=== PATIENT | male | born 1975 | race Caucasian/White ===

== ENCOUNTER 2018-10-24 07:53 | Emergency (ER) | payer OTHER ==
[2018-10-24 08:03] VITALS: BP 128/83; PULSE 82; TEMP 97.6; BMI 36.9
[2018-10-24] MEDS ORDERED: KETOROLAC TROMETHAMINE 60 MG/2 ML VIAL IM ONE (08:19)
[2018-10-24] MEDS ORDERED: KETOROLAC TROMETHAMINE 60 MG/2 ML VIAL ONE (08:21)
--- NOTE | 2018-10-24 08:25 | PDOC ---
History of Present Illness - General Chief Complaint: Pain Stated Complaint: neck pain Time Seen by Provider: 10/24/18 08:06 History Source: Patient Exam Limitations: No Limitations - History of Present Illness Initial Comments: 10/24/18 08:20 Relatively healthy 42-year-old male with history of well-controlled hypertension presents with left neck pain upon awakening this morning. Patient has been in usual state of normal health, around 6:30 AM got out of bed and noted left trapezius discomfort, worse with flexion and rotation, otherwise localized and nonradiating and not associated with any motor or sensory deficit. No associated headache/photophobia/fever/chills/sore throat, no history of known disc disease. The patient does do heavy lifting at work but has not done so for about 4 days, denies any other injuries. The patient took 2 Aleve around 6:30 and presents for evaluation after having minimal improvement. Past History - Past Medical History Allergies/Adverse Reactions: Allergies Allergy/AdvReac Type Severity Reaction Status Date / Time Penicillins Allergy Intermediate rash Verified 10/24/18 07:54 Home Medications: Ambulatory Orders Cholecalciferol (Vitamin D3) [Vitamin D3] 2,000 unit PO DAILY capsule 12/01/12 Cyclobenzaprine HCl 10 mg PO BID PRN #7 tablet MDD 2 tabs 10/24/18 COPD: No Disorders: Yes (renal stone) HTN: Yes Kidney Stones: Yes - Suicide/Smoking/Psychosocial Hx Smoking History: Never smoked Have you smoked in the past 12 months: No Hx Alcohol Use: Yes (occasional) Drug/Substance Use Hx: No Substance Use Type: None Review of Systems - Review of Systems Constitutional: No: Chills, Fever, Night Sweats HEENTM: No: Throat Pain, Throat Swelling, Difficulty Swallowing Respiratory: No: Shortness of Breath Cardiac (ROS): No: Chest Pain, Lightheadedness, Syncope Neurological: No: Headache, Paresthesia, Weakness *Physical Exam - Vital Signs Last Vital Signs Temp Pulse Resp BP Pulse Ox 97.6 F 82 18 128/83 98 10/24/18 07:53 10/24/18 07:53 10/24/18 07:53 10/24/18 07:53 10/24/18 07:53 - Physical Exam Comments: 10/24/18 08:22 Vital signs normal GENERAL: The patient is awake, alert, and fully oriented, in no acute distress. HEAD: Normal with no signs of trauma. EYES: PERRL, EOMI. ENT: oropharynx clear without exudates or swelling. Moist mucous membranes. NECK: Overall normal range of motion, slightly limited leftward rotation secondary to pain. No trapezial swelling or ecchymosis or erythema, slight reproducible discomfort. Supple without lymphadenopathy, bruits, or masses. LUNGS: Breath sounds equal, clear to auscultation bilaterally. No wheeze/ crackles. EXTREMITIES: Normal range of motion with full strength in four extremities. 2+ distal pulses NEUROLOGICAL: Cranial nerves II through XII grossly intact. Normal speech, normal gait. PSYCH: Normal mood, normal affect. SKIN: Warm, Dry, no rashes or lesions noted. Moderate Sedation - Procedure Monitoring Vital Signs: Procedure Monitoring Vital Signs Temperature 97.6 F 10/24/18 07:53 Pulse Rate 82 10/24/18 07:53 Respiratory Rate 18 10/24/18 07:53 Blood Pressure 128/83 10/24/18 07:53 O2 Sat by Pulse Oximetry (%) 98 10/24/18 07:53 Medical Decision Making - Medical Decision Making 10/24/18 08:25 42-year-old male presents with atraumatic left trapezial strain, neurologically intact without evidence of infectious or vascular process. Patient reassured, to new course of NSAIDs, normal activity, muscle relaxants as needed Muscle manipulation performed in ED by DO yovani Latif with significant relief , remains neurovascularly intact Agrees with discharge plan, understands return criteria *DC/Admit/Observation/Transfer Diagnosis at time of Disposition: Trapezius muscle strain Qualifiers: Encounter type: initial encounter Laterality: left Qualified Code(s): S46.812A - Strain of other muscles, fascia and tendons at shoulder and upper arm level, left arm, initial encounter - Discharge Dispostion Disposition: HOME Condition at time of disposition: Improved - Prescriptions Prescriptions: Cyclobenzaprine HCl 10 mg PO BID PRN #7 tablet MDD 2 tabs PRN Reason: Muscle Spasms - Referrals Referrals: Charles Fine MD [Staff Physician] - - Patient Instructions Printed Discharge Instructions: DI for Cervical Muscle Strain Additional Instructions: Activity as tolerated, avoiding bedrest or heavy lifting. Stay hydrated. Continue Aleve two tabs twice daily (preferably with food) for three days, then as needed. Flexeril as prescribed as needed as muscle relaxant - this medication can make you light headed, so take proper precautions. Continue your medications as previously prescribed by your physician. You should follow up with your primary doctor or a market development specialist regarding today's emergency department visit if symptoms persist. Return to the emergency department for any new or concerning symptoms, particularly worsening or shooting pain, arm numbness/weakness, fever/headache, difficulty swallowing. - Post Discharge Activity
== END 2018-10-24 08:37 | disposition home or self-care (01) ==
LOC: FER 07:53
PROC: 3E0233Z Introduction of Anti-inflammatory into Muscle, Percutaneous Approach (ICD-10-PCS; principal; 2018-10-24)
DX: S46.812A Strain of other muscles, fascia and tendons at shoulder and upper arm level, left arm, initial encounter (principal); X58.XXXA Exposure to other specified factors, initial encounter; Y93.89 Activity, other specified; Y92.89 Other specified places as the place of occurrence of the external cause; I10 Essential (primary) hypertension
CPT/HCPCS: 99282-25

== ENCOUNTER 2019-12-12 01:09 | Emergency (ER) | payer OTHER ==
[2019-12-12 01:16] VITALS: BP 142/97; PULSE 89; TEMP 98.6; BMI 33.2
--- NOTE | 2019-12-12 01:27 | PDOC ---
History of Present Illness - General Chief Complaint: Hematuria Stated Complaint: BLOOD IN URINE, PAIN IN TESTICLES Time Seen by Provider: 12/12/19 01:18 History Source: Patient Exam Limitations: No Limitations - History of Present Illness Initial Comments: 12/12/19 01:22 This is a 44-year-old male who comes in complaining of hematuria. Patient is complaining also of frequency. And some discomfort with urination. Patient says it feels like he has to urinate and is only able to urinate a small amount. But more frequently. Patient denies any back pain or flank pain. Patient did have some fevers earlier in the day but otherwise this evening denies any fevers or chills nausea vomiting or diarrhea. Allergies: as per nursing notes Past Medical History: Hypertension and high cholesterol Social history: Lives with family. No smoking. No alcohol. No illicit drugs. Surgical history: None General: No fevers or chills, no weakness, no weight loss HEENT: No change in vision. No sore throat,. No ear pain CardioVascular: no chest discomfort. No shortness of breath Respiratory:No cough, or wheezing. Gastrointestinal: no nausea, vomiting, diarrhea or constipation, No rectal bleeding Genitourinary: + dysuria, + hematuria, + frequency Musculoskeletal: No joint or muscle pain or swelling Neurologic: No headache, vertigo, dizziness or loss of consciousness Psychiatric: nor depression Skin: No rashes or easy bruising Endocrine: no increased thirst or abnormal weight change Allergic: no skin or latex allergy All other systems reviewed and normal GENERAL: The patient is awake, alert, and fully oriented, in no acute distress. HEAD: Normal with no signs of trauma. EYES: Pupils equal, round and reactive to light, extraocular movements intact, sclera anicteric, conjunctiva clear. EXTREMITIES:atraumatic, Normal range of motion, no edema. BACK: There is no CVA or back or flank pain on palpation and percussion. NEUROLOGICAL: Normal speech, normal gait. PSYCH: Normal mood, normal affect. SKIN: Warm, Dry, normal turgor, no rashes or lesions noted. 12/12/19 01:24 Assessment and plan: This is a 44-year-old male who comes in complaining of some urinary frequency and blood in his urine. UA obtained, and urine culture. Bladder scan done. 02/11/20 02:40 Assessment and plan: This is a 44-year-old male who comes in complaining of blood in his urine. Patient had a urinalysis that did show a urinary tract infection. Patient also had a bladder scan to make sure he was not in retention. Patient discharged we will follow-up with his primary care doctor. Patient started on Macrobid and Pyridium Past History - Past Medical History Allergies/Adverse Reactions: Allergies Allergy/AdvReac Type Severity Reaction Status Date / Time Penicillins Allergy Intermediate rash Verified 12/12/19 01:11 Home Medications: Ambulatory Orders Cholecalciferol (Vitamin D3) [Vitamin D3] 2,000 unit PO DAILY capsule 12/01/12 Phenazopyridine HCl [Pyridium] 100 mg PO TID #30 tablet 12/12/19 COPD: No Disorders: Yes (renal stone) HTN: Yes Kidney Stones: Yes - Psycho Social/Smoking Cessation Hx Smoking History: Never smoked Have you smoked in the past 12 months: No Information on smoking cessation initiated: No Hx Alcohol Use: No Drug/Substance Use Hx: No Substance Use Type: None *Physical Exam - Vital Signs Last Vital Signs Temp Pulse Resp BP Pulse Ox 98.6 F 89 16 142/97 97 12/12/19 01:14 12/12/19 01:14 12/12/19 01:14 12/12/19 01:14 12/12/19 01:14 Discharge - Discharge Information Problems reviewed: Yes Clinical Impression/Diagnosis: Hemorrhagic cystitis Condition: Stable Disposition: HOME - Admission No - Additional Discharge Information Prescriptions: Phenazopyridine HCl [Pyridium] 100 mg PO TID #30 tablet - Follow up/Referral Referrals: Raffi Aguirre MD [Primary Care Provider] - - Patient Discharge Instructions Additional Instructions: Take Pyridium 1 tablet 3 times a day as needed for blood in the urine and frequency symptoms. Take Macrobid 1 tablet twice a day for 5 days/ If symptoms have not resolved with an 48 hours follow-up with your primary care doctor or a urologist. Return to the emergency department immediately with ANY new, persistent or worsening symptoms. Continue any medications as previously prescribed by your physician. You should follow up with your primary doctor as soon as possible regarding today's emergency department visit. . Please make sure your doctor reviews the results of your emergency evaluation. Thank you for coming to the Emergency Department today for your care. It was a pleasure to see you today. Please note that your evaluation is INCOMPLETE until you follow-up with your doctor. - Post Discharge Activity
[2019-12-12] MEDS ORDERED: PHENAZOPYRIDINE HCL 100 MG TABLET (FP) PO ONE ×2 (01:33→01:35)
[2019-12-12] MEDS ORDERED: PHENAZOPYRIDINE HCL 100 MG TABLET (FP) ONE (01:33)
[2019-12-12 02:34] LABS: EPI CELLS 3.7 /HPF (0-5/HPF); HYALINE CASTS 15 /lpf (0-8); URINE APPEARANCE CLOUDY; URINE BACTERIA 12.2 /hpf (NEGATIVE); URINE BILIRUBIN NEGATIVE (NEGATIVE); URINE COLOR ORANGE; URINE GLUCOSE (UA) NEGATIVE (NEGATIVE); URINE KETONE NEGATIVE (NEGATIVE); URINE LEUK ESTERASE TRACE (NEGATIVE); URINE NITRITE NEGATIVE (NEGATIVE); URINE PROTEIN 2+ (NEGATIVE); URINE RBC 1527 /hpf (0-4); URINE WBC 10 /hpf (0-5)
[2019-12-12] MEDS ORDERED: NITROFURANTOIN MACROCRYSTAL 50 MG CAPSULE (FP) ONE (02:39)
[2019-12-12] MEDS ORDERED: NITROFURANTOIN MACROCRYSTAL 50 MG CAPSULE (FP) PO SCH (02:45)
== END 2019-12-12 02:45 | disposition home or self-care (01) ==
LOC: FER 01:09
DX: R33.9 Retention of urine, unspecified (principal); N30.81 Other cystitis with hematuria; Z88.0 Allergy status to penicillin; I10 Essential (primary) hypertension; N20.0 Calculus of kidney
CPT/HCPCS: 81003; 87086; 99284-25

== ENCOUNTER 2019-12-13 23:09 | Emergency (ER) | payer OTHER ==
[2019-12-13 23:16] VITALS: BP 140/84; PULSE 100; TEMP 98.1; BMI 28.0
--- NOTE | 2019-12-13 23:26 | PDOC ---
History of Present Illness - General Chief Complaint: Urinary Problem Stated Complaint: URINARY SYMPTOMS Time Seen by Provider: 12/13/19 23:13 - History of Present Illness Initial Comments: This 44-year-old man with a history of HTN and renal colic returns to the ER with persistent dysuria. Patient was seen here 48 hours ago with suprapubic discomfort and dysuria. At that time, UA revealed RBCs, WBCs and bacteria. Urine culture was sent and patient was started empirically on Macrodantin and Pyridium. Patient states that he felt better for approximately 24 hours; throughout the day today he had worsening suprapubic pain with urination. He denies suprapubic, flank or CVA pain when he is not urinating. There is no gross hematuria noted. He denies fever/chills, nausea/vomiting. Patient has had several previous episodes of renal colic with spontaneous passage of kidney stones in all cases. Most recent episode was several months ago (not seen here). He states his current pain is not similar to that which he has experienced during passage of kidney stones. Medication as noted below Allergy: Penicillin Non-smoker No daily alcohol or other recreational drug use Past History - Past Medical History Allergies/Adverse Reactions: Allergies Allergy/AdvReac Type Severity Reaction Status Date / Time Penicillins Allergy Intermediate rash Verified 12/12/19 01:11 Home Medications: Ambulatory Orders Cholecalciferol (Vitamin D3) [Vitamin D3] 2,000 unit PO DAILY capsule 12/01/12 Nitrofurantoin Macrocrystal [Macrodantin] 100 mg PO BID #10 capsule 12/12/19 Phenazopyridine HCl [Pyridium] 100 mg PO TID #30 tablet 12/12/19 Ciprofloxacin HCl [Cipro] 500 mg PO BID #14 tablet 12/14/19 COPD: No Disorders: Yes (renal stone) HTN: Yes Kidney Stones: Yes - Psycho Social/Smoking Cessation Hx Smoking History: Never smoked Have you smoked in the past 12 months: No Hx Alcohol Use: No Drug/Substance Use Hx: No Substance Use Type: None Review of Systems - Review of Systems Able to Perform ROS?: Yes Comments:: 12 point review of systems is negative except for what is noted in the history of present illness *Physical Exam - Physical Exam GENERAL: Adult male, alert and oriented x3, no acute distress HEAD: Normal with no signs of trauma. EYES: PERRLA, EOMI, sclera anicteric, conjunctiva clear. ENT: Ears normal, nares patent, oropharynx clear without exudates. moist mucous membranes. NECK: Normal range of motion, supple without lymphadenopathy, JVD, or masses. LUNGS: Breath sounds equal, clear to auscultation bilaterally. No wheezes, and no crackles. HEART:Regular rate and rhythm, normal S1 and S2 without murmur, rub or gallop. ABDOMEN:.normal bowel sounds. Mild suprapubic tenderness; no CVA or flank tenderness; no masses, rebound tenderness or guarding EXTREMITIES: Normal range of motion, no edema. No clubbing or cyanosis. No erythema, or tenderness. NEUROLOGICAL: Cranial nerves II through XII grossly intact. Normal speech. No focal neurological deficits. SKIN: Warm, Dry, normal turgor, no rashes or lesions noted. ED Progress Note - Progress Note Progress Note: Urinalysis performed: Dip positive for nitrite/3+ blood; microscopic 2040 RBC, 02 WBC, few bacteria Urine culture and sensitivity that was sent on 12/12: Negative Because the patient has symptoms consistent with UTI (although urine culture and sensitivity is negative), microscopic hematuria with some WBC/few bacteria and a history of renal stones, renal stone protocol CT performed. Preliminary interpretation by Imaging review consultant: Mild left hydronephrosis secondary to a 6 mm distal left UVJ stone. Additional small left renal stone noted. No other abnormality seen. Because the patient has 6 mm UVJ stone and symptoms consistent with UTI, there is possibility of complicated UTI/obstruction. Patient does not have a urologist. Dr. Robles is [employer] [facility] for urology and was contacted. Case discussed with him: Agrees with continuing antibiotic treatment with ciprofloxacin 500 mg orally. He can see the patient tomorrow. Results discussed with the patient. First dose of Cipro 500 mg p.o. given. He should continue drinking plenty of water. Although he did not require any medication for pain control here in the emergency room, if he develops any significant discomfort he can use acetaminophen/ibuprofen. If he has persistent pain he should return to the emergency room. Also, if he develops fever/chills he should return here. He should contact Dr. Robles's office in the morning and arrange to be an add -on patient during the day. Contact information for him provided to the patient Discharge - Discharge Information Problems reviewed: Yes Clinical Impression/Diagnosis: Kidney stone on left side, Dysuria Condition: Stable Disposition: HOME - Additional Discharge Information Prescriptions: Ciprofloxacin HCl [Cipro] 500 mg PO BID #14 tablet - Follow up/Referral Referrals: Raffi Aguirre MD [Primary Care Provider] - Nehemias Robles MD [Staff Physician] - Call tomorrow - Patient Discharge Instructions Patient Printed Discharge Instructions: Kidney Stones -- Adult Additional Instructions: continue to drink plenty of water Stop Macrodantin/Pyridium Begin Cipro 500 mg twice a day for 1 week (next dose tomorrow evening) Call urologist () office 9 a.m. and arrange follow-up tomorrow Tylenol/Motrin as needed for pain Return to ER if you have severe, persistent pain or fever/chills - Post Discharge Activity
[2019-12-14] MEDS ORDERED: CIPROFLOXACIN 500 MG TABLET (RESTRICTED TO ID) PO ONE (01:19)
[2019-12-14] MEDS ORDERED: CIPROFLOXACIN 250 MG TABLET (RESTRICTED TO ID) PO ONE (01:49)
== END 2019-12-14 01:51 | disposition home or self-care (01) ==
LOC: FER 23:09
DX: N20.0 Calculus of kidney (principal); R30.0 Dysuria; Z88.0 Allergy status to penicillin; I10 Essential (primary) hypertension
CPT/HCPCS: 74176-TC; 81003; 81015; 87086; 99284-25

== ENCOUNTER 2019-12-15 07:12 | Day surgery (SDC) | payer OTHER ==
--- NOTE | 2019-12-15 07:38 | PDOC ---
History of Present Illness - General Stated Complaint: PCP SENT History Source: Patient - History of Present Illness Initial Comments: 12/15/19 07:35 HPI 44 YOM with h/o kidney stones and HTN presenting with suprapubic AP x 1 week, a/ w hematuria (resolving), frequency and urgency and discomfort with urination, + subjective fevers (no temperature) and nausea.. Patient says it feels like he has to urinate and is only able to urinate a small amount with increased frequency, and after urinating the lower abdominal pressure improves. Denies fever, chills, chest pain, SOB, palpitation, dizziness, weakness, vomiting, diarrhea, flank pain, back pain, focal weakness/paresthesias, leg swelling/pain , rash. of note, pt had 2 prior ED visits for abdominal pain. on 12/11/19 - thought he had food poisoning at that time, he was told he had UTI, and on 12/13/19 he was told he had UVJ stone, CT scan at that time revealed Left UVJ obstructing stone measuring 6.5 x 3 x 4 mm with mild to moderate left hydronephrosis, nonobstructing stone in the left renal lower pole measuring 3.5 mm with exophytic cyst in the left middle kidney He started on ciprofloxacin 2 days ago after that visit and f/u with Dr Robles. he followed up with urologist yesterday, told he will require ESWL; went to [facility] for preop labs, but closed already at 4pm. urine culture has been NGTD. Allergies: pcn Past Medical History/PSH: HTN, kidney stones; no surgeries Social history: Lives with family. No tobacco, ETOH or drug use. Meds: as documented in EMR PMD: Dr Aguirre Urologist: Dr Robles. 12/15/19 07:37 12/15/19 07:43 12/15/19 07:58 Past History - Past Medical History Allergies/Adverse Reactions: Allergies Allergy/AdvReac Type Severity Reaction Status Date / Time Penicillins Allergy Intermediate rash Verified 12/12/19 01:11 Home Medications: Ambulatory Orders Cholecalciferol (Vitamin D3) [Vitamin D3] 2,000 unit PO DAILY capsule 12/01/12 Ciprofloxacin HCl [Cipro] 500 mg PO BID #14 tablet 12/14/19 COPD: No Disorders: Yes (renal stone) HTN: Yes Kidney Stones: Yes - Psycho Social/Smoking Cessation Hx Smoking History: Never smoked Have you smoked in the past 12 months: No Number of Cigarettes Smoked Daily: 0 Hx Alcohol Use: No Drug/Substance Use Hx: No Substance Use Type: None Review of Systems - Review of Systems Able to Perform ROS?: Yes Comments:: 12/15/19 07:53 Review of systems Constitutional: +subjective fevers No chills. No weakness HEENT: no headache or dizziness. CVS: no cp or syncope. Resp: no sob. No cough. Gastrointestinal: +abdominal pain, +nausea, No vomiting, No diarrhea. Genitourinary: +hematuria. +frequency, +urgency MUSCULOSKELETAL: No joint pain and swelling. No neck or back pain. SKIN: no redness or skin changes, no discharge, no rash. No wounds. Hematologic: no easy bruising/bleeding. NEUROLOGIC: No headache, dizziness, LOC or altered mental status. No weakness, numbness or tingling. Psych: no anxiety or depression Allergic/Immunologic: no allergies All other systems reviewed and negative, or as documented in HPI. *Physical Exam - Physical Exam 12/15/19 07:53 Physical exam General: Well appearing, awake and alert, NAD. HEENT: NCAT, PERRL, EOMI, clear conjunctiva, anicteric, moist mucus membranes, clear oropharynx, no oral lesions.. Neck: neck supple, FROM Resp: CTAB, normal and even respirations, no respiratory distress CVS: RRR, no murmurs, 2+ peripheral pulses throughout, no peripheral edema Abdomen: soft, nondistended. +suprapubic TTP, no rebound or guarding. : normal external genitalia. Back: nontender, normal inspection and ROM, no CVAT MSK: no edema, ADAMES x4, ROM intact. No clubbing or cyanosis. normal bulk and tone. Extremities: no calf tenderness Neuro: alert, oriented appropriately; no focal neurologic deficits Psych: Calm and cooperative Skin: warm and well perfused, cap refill <2 sec, normal color, no rash or skin discoloration. Heart Score/ECG Review #1 ECG reviewed & interpreted by me at: 07:45 General ECG Interpretation: Sinus Rhythm, Normal Rate, Normal Intervals 12/15/19 07:54 EKG normal sinus rhythm 74 bpm, no interval abnormalities, narrow QRS, ST and T wave segments and morphology normal. ED Treatment Course - LABORATORY CBC & Chemistry Diagram: 12/15/19 08:10 12/15/19 08:10 Medical Decision Making - Medical Decision Making 12/15/19 07:53 Vital Signs Temp Pulse Resp BP Pulse Ox 97.8 F 82 20 145/91 95 12/15/19 07:38 12/15/19 07:38 12/15/19 07:38 12/15/19 07:38 12/15/19 07:38 Vital signs reviewed within normal limits. Patient has been n.p.o. since last night. Patient has had 2 prior ED visits, today's presenting for preop management with his urologist Dr. Robles for obstructive UVJ stone on the left side, with austin mitten infection which patient is taking ciprofloxacin last dose was last night. He is planned for lithotripsy, basic labs coags type and screen EKG have been ordered. 12/15/19 08:09 d/w Dr Rocha, planned for ESWL at 10AM labs and lytes wnl, Cr normal UA with blood, no infectious finding but unreliable as pt already on ciprofloxacin and abx. Urine cx neg to date, pending repeat and after lithotripsy admit to OR/satellite for operative management with Dr Robles. 12/15/19 09:19 Discharge - Discharge Information Problems reviewed: Yes Clinical Impression/Diagnosis: Calculus of ureterovesical junction (UVJ) Condition: Stable - Admission Yes - Follow up/Referral Referrals: Raffi Aguirre MD [Primary Care Provider] - - Patient Discharge Instructions - Post Discharge Activity
[2019-12-15 07:45] VITALS: BMI 32.5
[2019-12-15 08:54] LABS: BASO % 0.7 % (0-2.0); EOS % 2.1 % (0-4.5); HEMATOCRIT 45.4 % (35.4-49); HEMOGLOBIN 15.7 GM/dL (11.7-16.9); LYMPH % 17.3 % (8-40); MCH 30.8 pg (25.7-33.7); MCHC 34.7 g/dl (32.0-35.9); MEAN CELL VOLUME 88.9 fl (80-96); MEAN PLT VOLUME 7.2 fl (7.5-11.1); MONO % 9.3 % (3.8-10.2); NEUT % 70.6 % (42.8-82.8); PLATELET COUNT 348 K/MM3 (134-434); RBC 5.11 M/mm3 (4.00-5.60); RDW 12.9 % (11.9-15.9); WHITE BLOOD COUNT 6.7 K/mm3 (4.0-10.0)
[2019-12-15 09:14] LABS: BILIRUBIN,TOTAL 0.6 mg/dL (0.2-1); BLOOD UREA NITROGEN 26.3 mg/dL (7-18); CALCIUM 9.4 mg/dL (8.5-10.1); INR 0.97 (0.83-1.09); POTASSIUM 4.3 mmol/L (3.5-5.1); PROTHROMBIN TIME (PATIENT) 11.5 SEC (9.7-13.0); TOT PROT 7.3 g/dl (6.4-8.2)
[2019-12-15 09:17] LABS: ACTIVATED PTT 33.9 SECONDS (25.2-36.5)
[2019-12-15 09:17] LABS: EPI CELLS 1.1 /HPF (0-5/HPF); HYALINE CASTS 4 /lpf (0-8); URINE APPEARANCE CLEAR; URINE BACTERIA 0.8 /hpf (NEGATIVE); URINE BILIRUBIN NEGATIVE (NEGATIVE); URINE COLOR DK YELLOW; URINE GLUCOSE (UA) NEGATIVE (NEGATIVE); URINE KETONE NEGATIVE (NEGATIVE); URINE LEUK ESTERASE NEGATIVE (NEGATIVE); URINE NITRITE NEGATIVE (NEGATIVE); URINE PROTEIN 2+ (NEGATIVE); URINE RBC 64 /hpf (0-4); URINE UROBILINOGEN 0.2 mg/dL (0.2-1.0); URINE WBC 2 /hpf (0-5)
[2019-12-15] MEDS ORDERED: MIDAZOLAM HCL 2 MG/2 ML SINGLE DOSE VIAL ONE (09:50)
[2019-12-15] MEDS ORDERED: LIDOCAINE HCL/PF 2% SDV 5ML VIAL ONE (09:50)
[2019-12-15] MEDS ORDERED: PROPOFOL 20 ML ONE (09:50)
--- NOTE | 2019-12-15 10:29 | HP ---
Admitting History and Physical - Admission History of Present Illness: 44 yo male with HTN, persistant pain from left distal ureteral stone, now to undego ureteroscopy/laser litho - Past Medical History Renal/: Yes: Renal Calculi - Smoking History Smoking history: Never smoked Have you smoked in the past 12 months: No Aproximately how many cigarettes per day: 0 - Alcohol/Substance Use Hx Alcohol Use: No Home Medications - Allergies Allergies/Adverse Reactions: Allergies Allergy/AdvReac Type Severity Reaction Status Date / Time Penicillins Allergy Intermediate rash Verified 12/12/19 01:11 - Home Medications Home Medications: Ambulatory Orders Cholecalciferol (Vitamin D3) [Vitamin D3] 2,000 unit PO DAILY capsule 12/01/12 Ciprofloxacin HCl [Cipro] 500 mg PO BID #14 tablet 12/14/19 Family Medical History Family History: Unable to Obtain Review of Systems - Review of Systems Constitutional: reports: No Symptoms Eyes: reports: No Symptoms HENT: reports: No Symptoms Neck: reports: No Symptoms Cardiovascular: reports: No Symptoms Respiratory: reports: No Symptoms Gastrointestinal: reports: No Symptoms Physical Examination Vital Signs: Vital Signs Temperature 97.8 F 12/15/19 07:38 Pulse Rate 82 12/15/19 07:38 Respiratory Rate 20 12/15/19 07:38 Blood Pressure 145/91 12/15/19 07:38 O2 Sat by Pulse Oximetry (%) 95 12/15/19 07:38 HENT: Yes: WNL Neck: Yes: WNL Cardiovascular: Yes: WNL Respiratory: Yes: WNL Gastrointestinal: Yes: WNL Renal/: Yes: CVA Tenderness - Left Labs: CBC, BMP 12/15/19 08:10 12/15/19 08:10 Imaging - Results Cat Scan: Report Reviewed Problem List - Problems (1) Calculus of ureterovesical junction (UVJ) Assessment/Plan: plan for ureteroscopy/laser litho Code(s): N20.1 - CALCULUS OF URETER
[2019-12-15] MEDS ORDERED: KETOROLAC TROMETHAMINE 30 MG/1 ML VIAL ONE (10:41)
[2019-12-15] MEDS ORDERED: DEXAMETHASONE SOD PHOSPHATE 4 MG/1 ML VIAL ONE (10:41)
[2019-12-15] MEDS ORDERED: oxyCODONE HCL 5 MG TABLET PO PRN (11:11)
--- NOTE | 2019-12-15 11:13 | OP ---
Operative Note - Note: Operative Date: 12/15/19 Pre-Operative Diagnosis: LDU stone Operation: cysto/left ureteroscopy/laser litho/stent Findings: LDU impacted Post-Operative Diagnosis: Same as Pre-op (plus LDU stricture) Anesthesia: General Operative Report Dictated: Yes
[2019-12-15] MEDS ORDERED: DEXTROSE 5%-0.45% SALINE 1,000 ML IV SCH (11:15)
--- NOTE | 2019-12-15 12:25 | EKG ---
Test Reason : Blood Pressure : / mmHG Vent. Rate : 074 BPM Atrial Rate : 074 BPM P-R Int : 118 ms QRS Dur : 082 ms QT Int : 378 ms P-R-T Axes : 043 055 041 degrees QTc Int : 419 ms POOR DATA QUALITY, INTERPRETATION MAY BE ADVERSELY AFFECTED NORMAL SINUS RHYTHM NORMAL ECG NO PREVIOUS ECGS AVAILABLE Confirmed by ANH CHAUDHRY MD ([id number]) on 12/15/2019 12:25:14 PM Referred By: Confirmed By:ANH CHAUDHRY MD
--- NOTE | 2019-12-15 12:29 | OP ---
DATE OF OPERATION: 12/15/2019 PREOPERATIVE DIAGNOSIS: Obstructing left distal ureteral stone. POSTOPERATIVE DIAGNOSIS: Impacted left distal ureteral stone. PROCEDURE: Cystoscopy, ureteroscopy, laser lithotripsy, stone basketing, and stent placement. SURGEON: Benedicto Perez MD INDICATION: Patient is a 44-year-old male who has had multiple ER visits for obstructing 5.5-mm left distal ureteral stone. He was taken to the OR today for ureteroscopy, laser lithotripsy. Risks, benefits, and alternatives were discussed, including risk of bleeding, infection, stricture formation, and potential need for additional procedures, potential injury to adjacent organs, and persistence of stone burden. DESCRIPTION OF PROCEDURE: After informed consent was obtained, patient taken to the OR, placed supine on the table with cardiac monitors administered. General anesthesia was established. He was prepped and draped in dorsal supine position. The rigid cystoscope was inserted in the urethra without difficulty. Anterior urethra was normal. Prostatic urethra was not occlusive. The bladder was visualized. No tumors, stones noted in the bladder. Attention was turned to the left ureteral orifice which was intubated with ureteral catheter. Contrast was injected for a retrograde pyelogram. There was hydroureteronephrosis down to the distal ureter where stone was seen. Guidewire was negotiated beyond the stone. Alongside the guidewire a semirigid ureteroscope was advanced into the distal ureter where a stone was seen just beyond the intramural ureter. The stone was completely impacted into the ureter. Using the 365-micron laser fiber, the stone was pulverized to fine dust and 1- to 2-mm fragments, and several of these fragments were removed with the stone basket. Repeat ureteroscopy revealed evidence of urethral stricture where the stone had been impacted; however, beyond this, the ureter appeared clear. There were no other residual stone fragments noted. Ureteroscope was then removed and a 7-Israeli 24-cm double pigtail stent was then advanced in monorail fashion. Fluoroscopy confirmed the stent to be in good position. Patient awoken from anesthesia and transferred to the recovery room in stable condition. There was no complications. Estimated blood loss was minimal. BENEDICTO PEREZ M.D. [id number]
[2019-12-15 14:25] VITALS: BP 107/78; PULSE 78; TEMP 98
== END 2019-12-15 14:15 | disposition home or self-care (01) ==
LOC: JOR 07:12 → JASU-SURG 08:07 → JASUSAT 08:07 → JASU-SURG 14:15
PROVIDERS: ATTEND Urology
PROC: 0TF78ZZ Fragmentation in Left Ureter, Via Natural or Artificial Opening Endoscopic (ICD-10-PCS; principal; 2019-12-15 10:30)
PROC: 0T778DZ Dilation of Left Ureter with Intraluminal Device, Via Natural or Artificial Opening Endoscopic (ICD-10-PCS; 2019-12-15 10:30)
DX: N20.1 Calculus of ureter (principal)
CPT/HCPCS: 36415; 76000-TC-FY; 80053; 81003; 85025; 85610; 85730; 86850; 86900; 86901; 87086; 93005; 93010; 94760; 99285-25

== ENCOUNTER 2019-12-31 20:43 | Emergency (ER) | payer OTHER ==
[2019-12-31] MEDS ORDERED: ONDANSETRON 4 MG/2 ML VIAL IVPB ONE (20:45)
[2019-12-31] MEDS ORDERED: SODIUM CHLORIDE 1,000 ML IV ONE (20:45)
[2019-12-31 20:50] VITALS: TEMP 99.2; BMI 33.2
[2019-12-31] MEDS ORDERED: ONDANSETRON 4 MG/2 ML VIAL ONE (20:56)
[2019-12-31 21:37] LABS: EPITHELIAL CELLS FEW /hpf
--- NOTE | 2019-12-31 21:46 | PDOC ---
Documentation entered by Alma Astorga SCRIBE, acting as scribe for Kim Desouza MD. Kim Desouza MD: This documentation has been prepared by the chichiibe, Alma Astorga SCRIBE, under my direction and personally reviewed by me in its entirety. I confirm that the documentation accurately reflects all work, treatment, procedures, and medical decision making performed by me. History of Present Illness - General Chief Complaint: Nausea/Vomiting Stated Complaint: NAUSEA, VOMITING Time Seen by Provider: 12/31/19 20:45 History Source: Patient Exam Limitations: No Limitations - History of Present Illness Initial Comments: 12/31/19 21:09 Patient is a 44 year old male with a significant PMH of HTN and kidney stones who presents with nausea and vomiting s/p lithotripsy. As per patient, he reports he got his stent taken out on and didn't eat for 12 hours and went to a restaurant afterwards and was unable to hold any food. He states he had several episodes of NBNB emesis with associated chills. He denies taking any medication for his symptoms. He denies any recent dysuria, frequency, urgency or hematuria. PMD: Dr Aguirre Urologist: Dr Robles. PAST MEDICAL HISTORY: HTN and Kidney stones. PAST SURGICAL HISTORY: no significant history FAMILY HISTORY: no pertinent history SOCIAL HISTORY: Pt lives with family and is employed. MEDICATIONS: reviewed ALLERGIES: As per nursing notes General: No fevers or chills, no weakness, no weight loss HEENT: No change in vision. No sore throat,. No ear pain CardioVascular: No chest pain or shortness of breath Respiratory:No cough, or wheezing. Gastrointestinal: +Nausea.+Vomiting.No diarrhea or constipation, No rectal bleeding Genitourinary: No dysuria, hematuria, or frequency Musculoskeletal: No joint or muscle pain or swelling Neurologic: No headache, vertigo, dizziness or loss of consciousness Psychiatric: nor depression Skin: No rashes or easy bruising Endocrine: no increased thirst or abnormal weight change Allergic: no skin or latex allergy All other systems reviewed and normal General: Well-nourished well-developed individual, no acute distress HEENT: Throat:+Dry mucous membranes. Tonsils normal, no erythema or exudate Neck: Supple, no meningeal signs, no lymphadenopathy Eyes::Pupils equal reactive and round, extraocular motion intact Chest: Nontender to palpation Cardiac: S1-S2 normal, regular rate and rhythm, no murmurs rubs or gallops Respiratory: Lungs clear to auscultation bilateral Abdomen: Soft, nondistended, normal bowel sounds, nontender to palpation diffusely Extremities: Warm, dry, no cyanosis, clubbing, or edema Skin: No rashes Neuro: Alert and oriented x3, nonfocal exam, grossly intact, normal gait Psych: Normal mood and affect Assessment and plan: This is a 44-year-old male who comes in complaining of nausea vomiting and no other symptoms. Patient had approximately 12 hours of multiple episodes of vomiting and is mild to moderately dehydrated here in the emergency department. Patient was given fluids and antiemetics. Patient able to tolerate p.o.'s and feels much better. Patient will follow-up with his primary care doctor given vomiting discharge instructions. Patient's repeat vitals are improved his heart rate came down from 124-103. Past History - Past Medical History Allergies/Adverse Reactions: Allergies Allergy/AdvReac Type Severity Reaction Status Date / Time Penicillins Allergy Intermediate rash Verified 12/31/19 20:44 Home Medications: Ambulatory Orders Ondansetron [Zofran *Odt*] 4 mg SL TID #12 od.tablet MDD 6 12/31/19 COPD: No Disorders: Yes (kidney stones, lithotripsy) HTN: Yes Kidney Stones: Yes - Immunization History Immunization Up to Date: Yes - Psycho Social/Smoking Cessation Hx Smoking History: Never smoked Have you smoked in the past 12 months: No Number of Cigarettes Smoked Daily: 0 Information on smoking cessation initiated: No Hx Alcohol Use: No Drug/Substance Use Hx: No Substance Use Type: None *Physical Exam - Vital Signs Last Vital Signs Temp Pulse Resp BP Pulse Ox 99.2 F 124 H 20 129/91 97 12/31/19 20:43 12/31/19 20:43 12/31/19 20:43 12/31/19 20:43 12/31/19 20:43 ED Treatment Course - ADDITIONAL ORDERS Additional order review: Laboratory Results 12/31/19 21:29 Urine Color Yellow Urine Appearance Clear Urine pH 5.0 Urine Protein Negative Urine Glucose (UA) Negative Urine Ketones Negative Urine Blood 3+ H Urine Nitrite Negative Urine Bilirubin Negative Urine Urobilinogen 0.2 Ur Leukocyte Esterase Negative Urine RBC 10-20 Urine WBC 0-2 Ur Transition Epith Cell Few Urine Bacteria Few - Medications Given in the ED: ED Medications Discontinued Medications Generic Name Dose Route Start Last Admin Trade Name Leyda PRN Reason Stop Dose Admin Ondansetron HCl 8 mg 12/31/19 20:45 12/31/19 21:00 Zofran Injection IVPB 12/31/19 20:46 8 mg ONCE ONE Administration Discharge - Discharge Information Problems reviewed: Yes Clinical Impression/Diagnosis: Nausea & vomiting Condition: Stable Disposition: HOME - Admission No - Additional Discharge Information Prescriptions: Ondansetron [Zofran *Odt*] 4 mg SL TID #12 od.tablet MDD 6 - Follow up/Referral Referrals: Raffi Aguirre MD [Primary Care Provider] - - Patient Discharge Instructions Additional Instructions: Clear liquids only for the next 6 hours.. If you develop further nausea or vomiting take Zofran 1 to 2 tablets as often as every 6-8 hours as needed I sent a prescription to your pharmacy After that if you have had no further vomiting you may have bananas, rice, applesauce, or toast. If no further vomiting for another 8 hours you may have regular food. If you vomit again then nothing to eat or drink for 2 hours. then start back with the clear liquids. Return to the emergency department immediately with ANY new, persistent or worsening symptoms. You MUST call and follow up with your doctor tomorrow if not better. Please make sure your doctor reviews the results of your emergency evaluation. - Post Discharge Activity
[2019-12-31 21:47] VITALS: BP 126/85; PULSE 102
== END 2019-12-31 21:52 | disposition home or self-care (01) ==
LOC: FER 20:43
PROC: 3E033GC Introduction of Other Therapeutic Substance into Peripheral Vein, Percutaneous Approach (ICD-10-PCS; principal; 2019-12-31)
DX: R11.2 Nausea with vomiting, unspecified (principal); Z88.0 Allergy status to penicillin; N20.0 Calculus of kidney; I10 Essential (primary) hypertension
CPT/HCPCS: 81003; 81015; 99284-25; J7030

== ENCOUNTER 2020-09-17 20:06 | Emergency (ER) | payer OTHER ==
[2020-09-17 20:35] VITALS: BP 118/75; PULSE 88; TEMP 99.7; BMI 32.5
== END 2020-09-17 20:35 | disposition home or self-care (01) ==
LOC: FER 20:06
DX: R19.7 Diarrhea, unspecified (principal)
CPT/HCPCS: 99282-25

== ENCOUNTER 2020-09-30 17:23 | Emergency (ER) | payer OTHER | END 2020-09-30 18:00 | disposition home or self-care (01) | LOC: JVIRT 17:23 | DX: Z03.818 Encounter for observation for suspected exposure to other biological agents ruled out (principal) | CPT/HCPCS: C9803; G2012-GT; U0003 ==

== ENCOUNTER 2021-06-25 08:31 | Emergency (ER) | payer OTHER ==
[2021-06-25] MEDS ORDERED: PANTOPRAZOLE SODIUM 40 MG in SODIUM CHLORIDE 100 ML IVPB ONE (08:54)
[2021-06-25 09:27] VITALS: TEMP 98; BMI 32.5
[2021-06-25] MEDS ORDERED: PANTOPRAZOLE SODIUM 40 MG VIAL ONE (09:39)
[2021-06-25 10:00] LABS: ALK PHOS 65 U/L (45-117); ANION GAP 8 MMOL/L (8-16); BILIRUBIN,TOTAL 0.7 mg/dl (0.2-1); CALCIUM 9.1 mg/dl (8.5-10); CHLORIDE 102 mmol/L (98-107); CO2 25 mmol/L (21-32); CREATININE 0.6 mg/dl (0.55-1.3); GLUCOSE,RANDOM 118 mg/dl (74-106); SGOT/AST 17 U/L (15-37); SGPT/ALT 23 U/L (13-61); SODIUM 135 mmol/L (136-145); TOT PROT 6.6 g/dl (6.4-8.2)
[2021-06-25 10:03] LABS: MEAN PLT VOLUME 7.6 fl (7.5-11.1)
[2021-06-25 10:07] LABS: BASO % 2.1 % (0-2.0); EOS % 0.4 % (0-4.5); HEMATOCRIT 45.2 % (35.4-49); HEMOGLOBIN 15.6 GM/dl (11.7-16.9); LYMPH % 14.7 % (8-40); MCH 30.6 pg (25.7-33.7); MCHC 34.5 g/dl (32.0-35.9); MEAN CELL VOLUME 88.5 fl (80-96); MONO % 5.7 % (3.8-10.2); NEUT % 77.1 % (42.8-82.8); PLATELET COUNT 332 10^3/uL (134-434); RBC 5.11 M/mm3 (4.00-5.60); RDW 12.4 % (11.9-15.9); WHITE BLOOD COUNT 7.2 K/mm3 (4.0-10.8)
[2021-06-25 12:16] VITALS: BP 147/85; PULSE 97
== END 2021-06-25 12:21 | disposition home or self-care (01) ==
LOC: FER 08:31
PROC: 3E033GC Introduction of Other Therapeutic Substance into Peripheral Vein, Percutaneous Approach (ICD-10-PCS; principal; 2021-06-25)
DX: R07.89 Other chest pain (principal); K21.9 Gastro-esophageal reflux disease without esophagitis
CPT/HCPCS: 36415; 71045-TC-FY; 80053; 82550; 84484; 85025; 93005; 99285-25

== ENCOUNTER 2022-09-13 10:30 | Emergency (ER) | payer OTHER ==
[2022-09-13] MEDS ORDERED: ONDANSETRON 4 MG/2 ML VIAL IVPUSH ONE (10:43)
[2022-09-13] MEDS ORDERED: MAG HYDROX/AL HYDROX/SIMETH 30 ML UNIT-DOSE CUP PO ONE (10:43)
[2022-09-13] MEDS ORDERED: FAMOTIDINE 20 MG/50 ML IVPB 20 MG/50 ML MG IVPB ONE ×2 (10:43→11:09)
[2022-09-13] MEDS ORDERED: LACTATED RINGERS SOLUTION 1000 ML INFUS.BAG IV ONE (10:43)
[2022-09-13 10:50] VITALS: BP 140/100; PULSE 85; RESP 16; TEMP 98.6; BMI 31.0
[2022-09-13] MEDS ORDERED: ONDANSETRON 4 MG/2 ML VIAL ONE (11:09)
[2022-09-13] MEDS ORDERED: MAG HYDROX/AL HYDROX/SIMETH 30 ML UNIT-DOSE CUP ONE (11:10)
[2022-09-13 11:39] LABS: ALBUMIN 4.2 g/dl (3.4-5.0); ALK PHOS 71 U/L (45-117); ANION GAP 7 MMOL/L (8-16); BILIRUBIN,TOTAL 0.9 mg/dl (0.2-1); CALCIUM 9.3 mg/dl (8.5-10); CHLORIDE 102 mmol/L (98-107); CO2 25 mmol/L (21-32); CREATININE 0.6 mg/dl (0.55-1.3); GLUCOSE,RANDOM 103 mg/dl (74-106); HEMATOCRIT 47.7 % (35.4-49); HEMOGLOBIN 16.2 G/dL (11.7-16.9); MCH 30.6 pg (25.7-33.7); MEAN CELL VOLUME 89.9 fl (80-96); MEAN PLT VOLUME 7.2 fl (7.5-11.1); PLATELET COUNT 308.3 10^3/uL (134-434); RBC 5.31 10^6/uL (4.00-5.60); RDW 13.3 % (11.9-15.9); SGOT/AST 17 U/L (15-37); SGPT/ALT 21 U/L (13-61); SODIUM 134 mmol/L (136-145); TOT PROT 7.1 g/dl (6.4-8.2); WHITE BLOOD COUNT 6.1 10^3/uL (4.0-10.8)
[2022-09-13 12:19] LABS: PLATELET ESTIMATE ADEQUATE
== END 2022-09-13 13:28 | disposition home or self-care (01) ==
LOC: FER 10:30
PROC: 3E033NZ Introduction of Analgesics, Hypnotics, Sedatives into Peripheral Vein, Percutaneous Approach (ICD-10-PCS; principal; 2022-09-13)
PROC: 3E033GC Introduction of Other Therapeutic Substance into Peripheral Vein, Percutaneous Approach (ICD-10-PCS; 2022-09-13)
DX: K21.9 Gastro-esophageal reflux disease without esophagitis (principal)
CPT/HCPCS: 0241U-QW; 36415; 71046-TC-FY; 80053; 81003; 84484; 85025; 87086; 93005; 99284-25

== ENCOUNTER 2022-10-05 10:34 | Day surgery (SDC) | payer OTHER ==
[2022-10-05 13:41] VITALS: TEMP 98
[2022-10-05 13:43] VITALS: PULSE 68; RESP 18
[2022-10-05 13:44] VITALS: BP 120/63
== END 2022-10-05 14:25 | disposition home or self-care (01) ==
LOC: FASU-ENDO 10:34
PROVIDERS: ATTEND Internal Medicine Gastroenterology
PROC: 0DB68ZX Excision of Stomach, Via Natural or Artificial Opening Endoscopic, Diagnostic (ICD-10-PCS; 2022-10-05)
PROC: 0D748DZ Dilation of Esophagogastric Junction with Intraluminal Device, Via Natural or Artificial Opening Endoscopic (ICD-10-PCS; 2022-10-05)
PROC: 0DB98ZX Excision of Duodenum, Via Natural or Artificial Opening Endoscopic, Diagnostic (ICD-10-PCS; principal; 2022-10-05 13:19)
DX: K29.50 Unspecified chronic gastritis without bleeding (principal); R13.10 Dysphagia, unspecified
CPT/HCPCS: 88305-TC; 88342-TC

== ENCOUNTER 2022-12-06 20:27 | Emergency (ER) | payer OTHER ==
[2022-12-06] MEDS ORDERED: LACTULOSE 20 GM/30 ML UDC (FOR ORAL USE ONLY) PO ONE (20:35)
[2022-12-06 20:38] VITALS: BP 137/85; PULSE 64; RESP 18; TEMP 97.9
[2022-12-06] MEDS ORDERED: LACTULOSE 20 GM/30 ML UDC (FOR ORAL USE ONLY) ONE (20:44)
[2022-12-06 21:12] VITALS: BMI 31.7
== END 2022-12-06 22:09 | disposition home or self-care (01) ==
LOC: FER 20:27
DX: R14.1 Gas pain (principal); K59.00 Constipation, unspecified
CPT/HCPCS: 74019-TC-FY; 81003; 93005; 99285-25